=== PATIENT | female | born 1975 | race African-American/Black ===

== ENCOUNTER 2019-12-13 00:53 | Emergency (ER) | payer MEDICAID ==
[~2019-12-13] VITALS: Ht 177.8 cm; Wt 179.6 kg
--- NOTE | 2019-12-13 01:44 | NUR ---
UA SAMPLE PROVIDED AT THIS TIME.
[2019-12-13] MEDS ORDERED: PROMETHAZINE 25 MG/ML, 1ML IM ONE (02:00)
[2019-12-13] MEDS ORDERED: PROMETHAZINE 25 MG/ML, 1ML ONE (02:02)
[2019-12-13] MEDS ORDERED: MORPHINE SULFATE 4 MG/ML, 1ML ONE ×2 (02:03→03:39)
--- NOTE | 2019-12-13 02:08 | NUR ---
MEDICAL RECORDS REQUESTED FROM [facility].
[2019-12-13 02:14] LABS: MICROSCOPIC INDICATED
[2019-12-13] MEDS: MORPHINE SULFATE 4 MG/ML, 1ML IVPush PRN ×2 (02:49→03:43)
--- NOTE | 2019-12-13 03:00 | NUR ---
IV PLACED, LABS DRAWEN, MEDICATED PER AUG. PT UPDATED ON POC.
[2019-12-13 03:02] LABS: BASOPHILS # (AUTO) 0.03 x10^3/uL (0-0.1); BASOPHILS % (AUTO) 0 % (0-1); EOSINOPHILS # (AUTO) 0.09 x10^3/uL (0-0.4); EOSINOPHILS % (AUTO) 1 % (1-7); LYMPHOCYTES # (AUTO) 2.15 x10^3/uL (1-3.4); LYMPHOCYTES % (AUTO) 24 % (22-44); MD NO; MEAN CORPUSCULAR HEMOGLOBIN 29.8 pg (27.0-34.8); MEAN CORPUSCULAR HGB CONC 33.2 g/dL (32.4-35.8); MEAN CORPUSCULAR VOLUME 89.5 fL (80-100); MEAN PLATELET VOLUME 8.1 fL (7.4-10.4); MONOCYTES # (AUTO) 0.39 x10^3/uL (0.2-0.8); MONOCYTES % (AUTO) 4 % (2-9); NEUTROPHILS # (AUTO) 6.42 x10^3/uL (1.8-6.8); NEUTROPHILS % (AUTO) 71 % (42-75); PLATELET COUNT 382 x10^3/uL (130-400); RED BLOOD COUNT 4.39 x10^6/uL (3.82-5.3); RED CELL DISTRIBUTION WIDTH 14.3 % (9.6-15.2)
[2019-12-13 03:13] LABS: ALANINE AMINOTRANSFERASE 19 U/L (12-78); ALBUMIN 3.2 g/dL (3.4-5.0); ANION GAP 6 mmol/L (5-15); CALCIUM 8.8 mg/dL (8.5-10.1); CHLORIDE 107 mmol/L (98-107); CREATININE 0.92 mg/dL (0.55-1.02)
[2019-12-13 03:18] LABS: ALKALINE PHOSPHATASE 131 U/L (45-117); BILIRUBIN,TOTAL 0.4 mg/dL (0.2-1.0); TOTAL PROTEIN 7.8 g/dL (6.4-8.2)
[2019-12-13 03:43] VITALS: BP 126/65
== END 2019-12-13 04:44 | disposition home or self-care (01) ==
LOC: ED 01:30
DX: R31.29 Other microscopic hematuria (principal); R11.2 Nausea with vomiting, unspecified; R10.11 Right upper quadrant pain; R10.31 Right lower quadrant pain; F17.200 Nicotine dependence, unspecified, uncomplicated; Z85.41 Personal history of malignant neoplasm of cervix uteri
CPT/HCPCS: 36415; 74176; 80053; 81001; 83690; 84703; 85025; 87086; 96372; 96374; 96376; 99285; J2270; J2550